=== PATIENT | female | born 1970 | race Caucasian/White ===

== ENCOUNTER 2019-12-02 08:44 | Outpatient (CLI) | payer OTHER, SELFPAY ==
--- NOTE | 2019-12-02 08:47 | ECG_ITS ---
Measurements Intervals [place] Rate: 61 P: 53 TN: 169 QRS: 27 QRSD: 74 T: 71 QT: 419 QTc: 423 Interpretive Statements SINUS RHYTHM RSR' IN V1 OR V2, CONSIDER RIGHT VENTRICULAR HYPERTROPHY OR RIGHT VCD BORDERLINE T WAVE ABNORMALITY- ANT/LAT LEADS BASELINE ARTIFACT- I, II, III, AVR, AVL, AVF, V1-V2 BORDERLINE ECG Electronically Signed On 12-02-2019 9:20:21 CDT by Kem Shipley D.O.
== END 2019-12-02 08:45 | disposition home or self-care (01) ==
PROVIDERS: PCP Internal Medicine; Visit Provider Surgery Plastic and Reconstructive Surgery
DX: E78.00 Pure hypercholesterolemia, unspecified (principal); R94.31 Abnormal electrocardiogram [ECG] [EKG]
CPT/HCPCS: 93005

== ENCOUNTER 2019-12-07 00:13 | Day surgery (SDC) | payer OTHER, SELFPAY ==
[2019-11-23 14:04] VITALS: BMI 23.9
[2019-12-07] VITALS (8 sets, daily range): BP systolic 127–137; BP diastolic 58–81; PULSE 65–78; RESP 10–16; TEMP 36.4–37; O2SAT 98–100
--- NOTE | 2019-12-07 06:50 | WPDHPUPDATE1 ---
History and Physical Update Update Date/Time: 12/07/19 06:50 History and Physical has been reviewed, including an updated exam of the patient. There are NO changes in the patient's condition. Risks, benefits, and alternatives have been discussed and questions answered. Patient agrees to proceed with procedure.
[2019-12-07 06:57] LABS: Urine Cotinine NEGATIVE
--- NOTE | 2019-12-07 07:14 | P.PNAN_ITS ---
Anes - Initial Pre Proc Eval Procedure: Operation Date: 12/07/19 10:00 Proposed Procedures p Bilateral Breast Implant Exchange, Bilateral Breast Scar Subcision - Hiram Blanco MD s Bilateral Breast Fat Grafting - Hiram Blanco MD Date/Time: 12/07/19 07:14 Surgeon: Hiram Blanco MD Pre Op Diagnosis: Hx of Bilateral Breast Reconstruction Patient Data Age: 49 Gender: F Height: 5 ft 3 in Weight: 61.24 kg Allergies Allergy/AdvReac Type Severity Reaction Status Date / Time ciprofloxacin Allergy Severe Hives Verified 12/07/19 06:45 codeine Allergy Severe THROAT Verified 12/07/19 06:45 SWELLING ketorolac [From Toradol] Allergy Severe Hypertension, Verified 12/07/19 06:45 FELT LIKE BODY WAS ON FIRE Penicillins Allergy Severe Hives Verified 12/07/19 06:45 Sulfa (Sulfonamide AdvReac Mild Rash Verified 12/07/19 06:45 Antibiotics) Home Medications Medication Instructions Recorded Confirmed Type thyroid (pork) 15 mg tablet 15 mg PO DAILY 08/23/19 12/07/19 History hydrocodone 5 mg-acetaminophen 325 1 tablet PO Q6H PRN #15 tablet 11/15/19 11/23/19 Rx mg tablet ondansetron HCl 4 mg tablet 4 mg PO Q8H PRN #30 tablet 11/15/19 11/23/19 Rx Tumeric 1 cap PO DAILY 11/23/19 12/07/19 History ascorbic acid (vitamin C) [Vitamin 1,000 mg PO DAILY 11/23/19 12/07/19 History C] estradiol 1 % VAGINAL WEEKLY 11/23/19 12/07/19 History niacin 500 mg PO HS 11/23/19 12/07/19 History omega 2-cae-qbv-fish oil [[place]-3] 1 cap PO DAILY 11/23/19 12/07/19 History Laboratory Tests 12/07/19 06:38 Cotinine Negative Patient hx anesthesia problems: none and post op nausea/vomiting Family hx anesthesia problems: none PMFSH Past Medical History Medical History (Updated 12/07/19 @ 06:59 by Abdoul Oates MD) History of osteoporosis Hyperlipidemia Hyperthyroidism Surgical History Surgical History History of exploratory laparotomy 2002 History of hysterectomy 2009 History of lithotripsy 2017 History of mastectomy, total 2009 History of parathyroidectomy 2019 History of tubal ligation 2004 Social History Social History Alcohol intake: never Anes - Eval Final PreProcedure Day of Procedure 12/07/19 07:14 Patient weight: normal Heart: regular rate and rhythm Lungs: clear to auscultation Airway: Mallampati scale class II Neurological: alert and oriented Last oral intake: >/= 8 hours ASA classification: III Emergent: no Anesthetic plan: proceed Anesthesia type and monitoring: general LMA and standard monitoring Informed Consent: The patient's anesthetic plan and its attendant risks and benefits were discussed with the patient/family/POA. Questions were solicited and answers provided to the satisfaction of the patient/family/POA.
[2019-12-07] MEDS: SCOPOLAMINE 1.5 MG PATCH TRANSDERM (07:20)
[2019-12-07] MEDS: ONDANSETRON INJ 4 MG/2 ML VIAL IV PUSH (07:20)
[2019-12-07] MEDS: CLINDAMYCIN 900 MG/NS 50 ML 900 MG/50 ML PIGGYBACK 50 MG IVPB (07:24)
--- NOTE | 2019-12-07 07:31 | PM.PROC ---
Procedure Note - Detailed Date of procedure: 12/07/19 Pre-op diagnosis: Hx of Bilateral Breast Reconstruction Post-op diagnosis: same Procedure performed: 1. Bilateral breast implant exchange 2. Bilateral breast capsulotomy 3. Bilateral breast fat grafting 4. Bilateral breast subcision Description of procedure: Patient was marked in the preoperative holding area with her verification. She was taken to the operating room placed supine on operating room table. Anesthesia provided by anesthesiology and prepped and draped in a standard sterile fashion. Surgical time-out was taken. Stab incisions with a 14 gauge was used at the abdomen it previous scars. I did a thorough abdominal examination and I tumesced with a tumescent solution. Completed suction lipectomy using a 3 mm multi hole cannula on the power assisted liposuction. This was put in a gravity separation device and we allowed for adequate time for separation. I only used the central portion getting rid of the inferior and superior aspect. I then proceeded to the breast. I used a cane needle and did sub seizure of scars that were depressed using a vertical meshing technique. Then using 14 gauge made a couple puncture sites. I infiltrated using a 2 point mm cannula in multiple planes passes limiting my adipose addition based on preoperative planning. Fifteen blade used to excise the previous lateral scars on the breast. Dissection was continued until the implant was identified this was removed. I did a superior and small lateral capsulotomy. I irrigated with 3 L of saline solution on TUR tubing. Verified strict hemostasis. Irrigated with triple antibiotic and Betadine containing solution. Using a funnel and no-touch technique after wash my gloves the implant was introduced into the pocket. This was closed with 2-0 Vicryl followed by 3-0 Monocryl in a running subcuticular 4-0 Monocryl and tissue glue. Fluffs and a surgical bra were placed. I placed topifoam on the abdomen and abdominal binder. She tolerated well. She was woken the PACU without difficulty. All instrument sponge counts were correct at the end of the case. Anesthesia: GLMA Surgeon: Hiram Blanco MD Estimated blood loss (mL): 10 Drains: No Packing: No Pathology: none sent Complications: No immediate complications Condition: stable Disposition: PACU Findings: Implants [employer] Inspira Softtouch 615cc Right: REF# [id number] Left: REF# [id number] Fat grafting harvest from abdomen. Left: 60cc Right: 60cc Bilateral breast subcision
[2019-12-07] MEDS: LACTATED RINGERS 1,000 ML 30 ML IV CONT (07:52)
== END 2019-12-07 11:45 | disposition home or self-care (01) ==
PROVIDERS: Visit Provider Surgery Plastic and Reconstructive Surgery
PROC: (CPT 19342; principal; 2019-12-07 10:00)
PROC: (CPT 15769; 2019-12-07 10:00)
DX: N64.89 Other specified disorders of breast (principal); Z85.3 Personal history of malignant neoplasm of breast; Z15.01 Genetic susceptibility to malignant neoplasm of breast; Z90.13 Acquired absence of bilateral breasts and nipples; Z80.3 Family history of malignant neoplasm of breast; E05.90 Thyrotoxicosis, unspecified without thyrotoxic crisis or storm; Z87.891 Personal history of nicotine dependence; E78.5 Hyperlipidemia, unspecified; Z79.899 Other long term (current) drug therapy
CPT/HCPCS: 19380; 36415; 80307; A9270; C9290; J0131; J0171; J0690; J1100; J1580; J2250; J2370; J2405; J2704; J3010; J7120

== ENCOUNTER 2021-02-26 16:23 | Outpatient (CLI) | payer OTHER, SELFPAY ==
--- NOTE | ~2021-02-26 | XR_ITS ---
EXAMINATION: CT abdomen pelvis wo con, XR abdomen/kub 1V DATE: 02/26/2021 16:56 INDICATION: Bilateral flank pain, left greater than right. Hematuria. TECHNIQUE: 1. Computed tomography (CT) of the abdomen and pelvis was performed without intravenous contrast. Aut omated exposure control and iterative reconstruction technique were employed. The dose-length product was 175.20 mGy-cm. 2. AP view of the abdomen and pelvis was obtained on 2 radiographs. COMPARISON: None FINDINGS: CT: Lung bases are clear. Bilateral breast implants. Heart size is normal. No pericardial or pleural effu cj. Liver, gallbladder, spleen, pancreas and bilateral adrenal glands are normal. A few small low d ensity likely renal cysts, the largest a 1.5 cm cyst at the upper pole of the left kidney. 8 mm macro scopic fat attenuation angiomyolipoma at the lower pole of the right kidney. Nonobstructing punctate 1 mm stone at the lower pole of the right kidney. No other evident urolithiasis with no stones seen a long either the left or right ureter. No hydronephrosis or perinephric stranding. Bladder is normal. The uterus is not identified and has likely been surgically resected. Tiny fat-containing umbilical h ernia. Bowels including the appendix are normal. No free intraperitoneal gas or fluid. 20 degrees lum bar levoscoliosis. KUB: The tiny renal stones seen on CT are too small to be visualized on the plain radiographs. There is ho wever a tiny phlebolith in the caudal right hemipelvis. Normal bowel gas pattern. Lumbar levoscoliosi s. IMPRESSION: 1. 1 mm bilateral nonobstructing renal stones. No hydronephrosis or stones in the ureter on either th e left or right. Reviewed, dictated and finalized at location A. IMPRESSION: 1. 1 mm bilateral nonobstructing renal stones. No hydronephrosis or stones in t he ureter on either the left or right.
== END 2021-02-26 16:24 | disposition home or self-care (01) ==
PROVIDERS: PCP Internal Medicine Geriatric Medicine; Visit Provider Nurse Practitioner Family
DX: R31.9 Hematuria, unspecified (principal); R10.9 Unspecified abdominal pain; N20.0 Calculus of kidney
CPT/HCPCS: 74018; 74176

== ENCOUNTER → 2021-07-30 11:36 | Outpatient (CLI) | payer OTHER, SELFPAY ==
--- NOTE | ~2021-07-30 | CT_ITS ---
EXAMINATION: CT diagnostic chest wo con EXAM DATE: 07/30/2021 11:58 INDICATION: Double mastectomy. TECHNIQUE: Spiral CT of the chest without contrast. Axial, coronal and sagittal images of the chest were reviewed. Coronal maximum intensity pixel images of chest reviewed. The dose-length product ( DLP) for this examination was 62.50 mGy-cm. The exposure was tailored according to patient size (aut o mA exposure control), and iterative reconstruction (ASIR) was used as additional dose reduction libia hnique. There is no prior study for comparison. FINDINGS: There is mild emphysema. There is 3 x 5 mm left upper lobe nodule. There are several other groundglass nodular densities identified bilaterally, probably postinfectious. There are no pleural or pericardial effusions. Bilateral breast implants. Tracheobronchial tree is patent. There is no mediastinal, hilar or axillary lymphadenopathy. There is no pneumothorax. Heart normal in size. No evidence of coronary arterial calcification. Upper abdomen is unremarkable. There is thoracic spondylosis without osteoblastic or osteolytic lesions identified. IMPRESSION: 1. Several small pulmonary nodules, probably granulomas. Consider one-year follow-up noncontrast [facility] CT. 2. Mild emphysema. Reviewed, dictated and finalized at location A. DUMPER IMPRESSION: 1. Several small pulmonary nodules, probably granulomas. Consider one-year fol low-up noncontrast chest CT. 2. Mild emphysema.
== END ==
DX: R91.8 Other nonspecific abnormal finding of lung field (principal); J43.9 Emphysema, unspecified
CPT/HCPCS: 71250